=== PATIENT | female | born 1980 | race African-American/Black ===

== ENCOUNTER 2016-11-29 22:07 | Emergency (ER) | payer OTHER ==
[2016-11-29 22:24] LABS: URINE SOURCE CLEAN CATCH
[2016-11-29 22:28] LABS: BASOPHIL% 0.5 % (0-2.5); DIFF IND NO; EOSINOPHIL# 0.1 X10e3 (0-0.7); EOSINOPHIL% 1.6 % (0.0-7.0); HEMATOCRIT 36.9 % (35.0-45.0); HEMOGLOBIN 11.8 gm/dL (12.0-16.0); LYMPHOCYTE# 2.5 X10e3 (1.0-3.5); LYMPHOCYTE% 29.7 % (17.0-45.0); MEAN CELL VOLUME 86.1 FL (83-96); MEAN CORPUSCULAR HEMOGLOBIN 27.6 PG (28-34); MEAN CORPUSCULAR HGB CONC 32.1 g/dL (30-36); MEAN PLATELET VOLUME 9.8 FL (6.5-11.5); MONOCYTE% 11.3 % (3.0-12.0); NEUTROPHIL# 4.8 X10e3 (1.5-7.1); NEUTROPHIL% 56.9 % (40-75); PLATELET COUNT 157 X10e3 (140-420); RED BLOOD COUNT 4.29 X10e (3.90-5.30); RED CELL DISTRIBUTION WIDTH 15.1 % (11.0-15.5); WHITE BLOOD COUNT 8.5 X10e3 (4.0-10.5)
[2016-11-29 22:30] LABS: URINE APPEARANCE CLOUDY; URINE BILIRUBIN NEG (NEG); URINE BLOOD NEG (NEG); URINE COLOR YELLOW; URINE GLUCOSE NEG (NEG); URINE KETONE NEG (NEG); URINE LEUKOCYTE ESTERASE 1+ (NEG); URINE NITRATE NEG (NEG); URINE PROTEIN NEG (NEG); URINE SPECIFIC GRAVITY 1.021 (1.003-1.035); URINE UROBILINOGEN 0.2 MG/DL (NEG)
[2016-11-29 22:32] LABS: CULTURE INDICATED? YES; U HYALINE CASTS AUWI 0-2 /[LPF]; URINE BACTERIA AUWI 1+ (NEGATIVE); URINE SQUAMOUS EPITHELIAL CELL MOD /[HPF]
[2016-11-29 23:00] LABS: ALBUMIN SERUM 3.9 g/dL (3.5-5.0); ALKALINE PHOSPHATASE 36 U/L (32-92); ALT (SGPT) 9 U/L (10-40); AST (SGOT) 12 U/L (10-42); BILIRUBIN, DIRECT 0.1 mg/dL (0.0-0.2); BILIRUBIN,INDIRECT 0.4 mg/dL (0.0-0.9); BILIRUBIN,TOTAL 0.5 mg/dL (0.2-2.0); BLOOD UREA NITROGEN 9 mg/dL (9-23); BUN/CREATININE RATIO 12.85; CALCIUM SERUM 8.7 mg/dL (8.4-10.2); CARBON DIOXIDE 23 mmol/L (22-31); CHLORIDE 104 mmol/L (100-111); CREATININE SERUM 0.7 mg/dL (0.6-1.4); GLOM FILT RATE Estimated ABOVE60 mL/min (>60); GLUCOSE FASTING 90 mg/dL (70-110); LIPASE 19 U/L (22-51); POTASSIUM 3.8 mmol/L (3.5-5.1); PROTEIN TOTAL SERUM 7.2 g/dL (6.0-8.3); SODIUM 135 mmol/L (135-145)
== END 2016-11-29 23:25 | disposition home or self-care (01) ==
LOC: CED 22:07
PROVIDERS: Emergency Medicine
DX: N30.00 Acute cystitis without hematuria (principal); I10 Essential (primary) hypertension; F17.200 Nicotine dependence, unspecified, uncomplicated
CPT/HCPCS: 36415; 80048; 80076; 81003; 83690; 84703; 85025; 87086; 96374; 99283; 99284; J1885

== ENCOUNTER 2017-02-07 16:06 | Emergency (ER) | payer OTHER ==
--- NOTE | ~2017-02-07 | EKG ---
PATIENT: SHERRY STEINER UNIT #: [id number] Ventricular Rate: 66 BPM Atrial Rate: 66 BPM P-R Interval: 196 ms QRS Duration: 84 ms Q-T Interval: 412 ms QTC Calculation(Bezet): 431 ms P [place]: 59 degrees Calculated R [place]: 29 degrees Calculated T [place]: 50 degrees Diagnosis Line: Normal sinus rhythm Diagnosis Line: Normal ECG Diagnosis Line: When compared with ECG of 14-NOV-2016 18:16, Diagnosis Line: No significant change was found Diagnosis Line: Confirmed by STEPHANI OGLDEN MD ([id number]) on Diagnosis Line: 02/08/2017 8:37:33 AM INTERPRETING MD: CHANTEL MYRICK
[2017-02-07 16:59] LABS: BASOPHIL% 0.5 % (0-2.5); EOSINOPHIL# 0.1 X10e3 (0-0.7); EOSINOPHIL% 0.7 % (0.0-7.0); HEMATOCRIT 38.8 % (35.0-45.0); HEMOGLOBIN 12.2 gm/dL (12.0-16.0); LYMPHOCYTE# 2.4 X10e3 (1.0-3.5); LYMPHOCYTE% 31.5 % (17.0-45.0); MEAN CELL VOLUME 88.9 FL (83-96); MEAN CORPUSCULAR HEMOGLOBIN 27.9 PG (28-34); MEAN CORPUSCULAR HGB CONC 31.3 g/dL (30-36); MEAN PLATELET VOLUME 9.5 FL (6.5-11.5); MONOCYTE# 0.7 X10e3 (0-1.0); MONOCYTE% 8.7 % (3.0-12.0); NEUTROPHIL# 4.6 X10e3 (1.5-7.1); NEUTROPHIL% 58.6 % (40-75); PLATELET COUNT 170 X10e3 (140-420); RED BLOOD COUNT 4.37 X10e (3.90-5.30); RED CELL DISTRIBUTION WIDTH 15.2 % (11.0-15.5); WHITE BLOOD COUNT 7.8 X10e3 (4.0-10.5)
[2017-02-07 17:00] LABS: DIFF IND NO
[2017-02-07 17:30] LABS: BUN/CREATININE RATIO 12.5; CREATININE SERUM 0.8 mg/dL (0.6-1.4); POTASSIUM 3.5 mmol/L (3.5-5.1)
[2017-02-07 17:31] LABS: URINE SOURCE CLEAN CATCH
[2017-02-07 17:38] LABS: URINE APPEARANCE CLEAR; URINE BILIRUBIN NEG (NEG); URINE BLOOD NEG (NEG); URINE COLOR YELLOW; URINE GLUCOSE NEG (NEG); URINE KETONE NEG (NEG); URINE LEUKOCYTE ESTERASE TRACE (NEG); URINE NITRATE NEG (NEG); URINE PROTEIN NEG (NEG); URINE SPECIFIC GRAVITY 1.019 (1.003-1.035); URINE UROBILINOGEN 0.2 MG/DL (NEG)
[2017-02-07 17:41] LABS: URINE BACTERIA AUWI NEG (NEGATIVE); URINE SQUAMOUS EPITHELIAL CELL MOD /[HPF]
== END 2017-02-07 17:55 | disposition home or self-care (01) ==
LOC: CED 16:06
PROVIDERS: Emergency Medicine
DX: I95.1 Orthostatic hypotension (principal); F17.200 Nicotine dependence, unspecified, uncomplicated
CPT/HCPCS: 36415; 80048; 81003; 84703; 85025; 93005; 99284

== ENCOUNTER 2017-02-25 20:12 | Emergency (ER) | payer OTHER ==
--- NOTE | ~2017-02-25 | CR142 ---
[facility] A Service of [facility] RADIOLOGY TEXT RESULTS PATIENT: SHERRY STEINER LOCATION: [facility] : 80 UNIT #: [id number] AGE: [address]: Lisa Donaldson APRN SEX: F ORDER DR: [id number] [facility] [address] [place], [place] [address] [id number] E MR#: [id number] Acc #: [id number] NAME: SHERRY STEINER : 1980 SEX: F STUDY DATE/TIME: 02/25/2017 23:14 UNIT: [facility] ROOM: STUDY DESCRIPTION: CR Hand Min 3 Views Rt Attending Physician: Lisa Donaldson A.P.R.N. Ordering Physician: Lisa Donaldson A.P.R.N. Primary Care Physician: No Primary Care Physician MEDICAL IMAGING REPORT This report is preliminary unless electronic signature is present EXAM Right hand series. INDICATIONS Right hand pain and swelling today. No injury. PROCEDURE 3 views right hand. COMPARISON None. FINDINGS No acute fracture or dislocation. IMPRESSION No acute findings. Dictated by... Slick Denton M.D. THIS IS AN ELECTRONICALLY VERIFIED REPORT Slick Denton M.D. at 03/01/2017 7:21 AM CHE/[place] TD: 02/26/2017 08:54 JOB #: [id number] MEDICAL IMAGING REPORT Page 1 of 1 COPY
== END 2017-02-26 | disposition home or self-care (01) ==
LOC: CFTX 20:12 → CED 20:12 → CFTX 22:46
DX: G56.01 Carpal tunnel syndrome, right upper limb (principal); X58.XXXA Exposure to other specified factors, initial encounter; Y92.69 Other specified industrial and construction area as the place of occurrence of the external cause
CPT/HCPCS: 29125; 73130; 99283

== ENCOUNTER 2017-04-01 08:55 | Emergency (ER) | payer OTHER ==
--- NOTE | ~2017-04-01 | CR243 ---
[facility] A Service of [facility] & [facility] RADIOLOGY TEXT RESULTS PATIENT: SHERRY STEINER LOCATION: [facility] : 80 UNIT #: [id number] AGE: [address]: Melita Kothari SEX: F ORDER DR: [id number] [facility] [address] [place], [place] [address] [id number] E MR#: [id number] Acc #: [id number] NAME: SHERRY STEINER : 1980 SEX: F STUDY DATE/TIME: 04/01/2017 10:03 UNIT: [facility] ROOM: STUDY DESCRIPTION: CR Thoracic Spine 3 Views Attending Physician: Melita Kothari P.A.-C. Ordering Physician: Melita Kothari P.A.-C. Primary Care Physician: No Primary Care Physician MEDICAL IMAGING REPORT This report is preliminary unless electronic signature is present EXAM Thoracic spine, 04/01/2017, [facility]. HISTORY 36-year-old female with back pain. FINDINGS AP, lateral, and swimmer's projections of the thoracic spine demonstrate normal thoracic alignment and curvature. Vertebral body heights and disc spaces are preserved. Paravertebral soft tissues are normal. Incidental note of bilateral renal multiple calyceal stones. IMPRESSION 1. Negative thoracic spine. 2. Nephrolithiasis with bilateral multiple renal calyceal stones partially imaged. Dictated by... Louis Boyd M.D. THIS IS AN ELECTRONICALLY VERIFIED REPORT Louis Boyd M.D. at 04/01/2017 12:36 PM JENA/gala TD: 04/01/2017 10:55 JOB #: [id number] MEDICAL IMAGING REPORT Page 1 of 1 COPY
--- NOTE | ~2017-04-01 | EKG ---
PATIENT: SHERRY STEINER UNIT #: [id number] Ventricular Rate: 67 BPM Atrial Rate: 67 BPM P-R Interval: 186 ms QRS Duration: 80 ms Q-T Interval: 398 ms QTC Calculation(Bezet): 420 ms P [place]: 59 degrees Calculated R [place]: 19 degrees Calculated T [place]: 40 degrees Diagnosis Line: Normal sinus rhythm Diagnosis Line: Normal ECG Diagnosis Line: When compared with ECG of 07-FEB-2017 16:46, Diagnosis Line: No significant change was found Diagnosis Line: Confirmed by STEPHANI GOLDEN MD ([id number]) on Diagnosis Line: 04/02/2017 7:59:05 AM INTERPRETING MD: CHANTEL MYRICK
--- NOTE | ~2017-04-01 | CR63 ---
[facility] A Service of [facility] & [facility] RADIOLOGY TEXT RESULTS PATIENT: SHERRY STEINER LOCATION: [facility] : 80 UNIT #: [id number] AGE: [address]: Melita Kothari SEX: F ORDER DR: [id number] [facility] [address] [place], [place] [address] [id number] E MR#: [id number] Acc #: [id number] NAME: SHERRY STEINER : 1980 SEX: F STUDY DATE/TIME: 04/01/2017 9:57 UNIT: [facility] ROOM: STUDY DESCRIPTION: CR Chest 2 View Attending Physician: Melita Kothari P.A.-C. Ordering Physician: Melita Kothari P.A.-C. Primary Care Physician: Primary Care Physician No MEDICAL IMAGING REPORT This report is preliminary unless electronic signature is present EXAM Chest, 04/01/2017 HISTORY 36-year-old woman, short of air, upper back pain. Symptoms noted this a.m. Patient scheduled for thoracic spine as well. COMPARISON Portable chest, 04/07/2016. PA and lateral chest 09/29/2015. FINDINGS PA and lateral chest views show borderline cardiac enlargement. Hilar structures and mediastinal contours are preserved. Bilateral lungs are expanded and clear. Bony thorax appears normal. IMPRESSION Borderline cardiac enlargement. Chest appears negative otherwise with no acute finding. Dictated by... Louis Boyd M.D. THIS IS AN ELECTRONICALLY VERIFIED REPORT Louis Boyd M.D. at 04/01/2017 12:36 PM Jacki TD: 04/01/2017 10:53 JOB #: [id number] MEDICAL IMAGING REPORT Page 1 of 1 COPY
--- NOTE | ~2017-04-01 | CT4 ---
[facility] A Service of [facility] & [facility] RADIOLOGY TEXT RESULTS PATIENT: SHERRY STEINER LOCATION: [facility] : 80 UNIT #: [id number] AGE: [address]: Melita Kothari SEX: F ORDER DR: [id number] [facility] [address] [place], [place] [address] [id number] E MR#: [id number] Acc #: [id number] NAME: SHERRY STEINER : 1980 SEX: F STUDY DATE/TIME: 04/01/2017 11:33 UNIT: [facility] ROOM: STUDY DESCRIPTION: CT Abd and Pelv Wo Cont Attending Physician: Melita Kothari P.A.-C. Ordering Physician: Melita Kothari P.A.-C. Primary Care Physician: No Primary Care Physician MEDICAL IMAGING REPORT This report is preliminary unless electronic signature is present EXAM CT abdomen and pelvis without contrast 04/01/2017 HISTORY Mid back pain for 2 hours; history of hypertension and kidney stones. TECHNIQUE CT abdomen and pelvis performed without administration of oral or intravenous contrast. This CT exam was performed with one or more of the following radiation dose reduction techniques: automatic exposure control, adjustment of mA and/or kV according to patient size, and iterative reconstruction. COMPARISON Comparison 11/30/2015. FINDINGS Dependent atelectasis at the lung bases. Inferior heart and pericardium show some scattered coronary arterial calcifications. The liver shows no acute abnormality. Gallbladder, spleen, pancreas unremarkable. No adrenal abnormalities. The kidneys show multiple bilateral nonobstructing renal calculi, largest on the left measuring approximately 5 mm in diameter and the largest on the right measuring approximately 4 mm in diameter. No hydronephrosis. No hydroureter or ureteral calculus. There are stable phleboliths in the deep pelvis bilaterally. No secondary signs of recent stone passage. No indication of cystic or solid renal mass lesion. CT PELVIS: No inguinal adenopathy. Urinary bladder unremarkable. Uterus and adnexal regions notable for prior bilateral tubal ligation. No fluid collections in the pelvis or abdomen. No adenopathy. Distal esophagus, stomach, small bowel, appendix, and colon unremarkable. Unopacified [facility] A Service of [facility] & [facility] RADIOLOGY TEXT RESULTS PATIENT: SHERRY STEINER [facility]: [id number] : [birth year] UNIT #: [id number] AGE: [address]: Melita Kothari SEX: F ORDER DR: vascular structures show scattered atherosclerotic arterial calcifications. No aneurysm. Patient is status post L5-S1 posterior orthopedic fusion with bilateral fixation screws and rods. Intervertebral disc spacer at this level, as well. The orthopedic hardware appears intact. No acute-appearing bony abnormality. IMPRESSION 1. Multiple bilateral nonobstructing renal calculi. No secondary signs of recent stone passage. No acute-appearing abnormalities in the kidneys, ureters and urinary bladder. 2. Gallbladder, pancreas, appendix normal. 3. Status post tubal ligation. Uterus and adnexal regions show no acute abnormality. 4. Prior L5-S1 orthopedic posterior fusion. No acute-appearing bony abnormality. Dictated by... Oscar Coyne M.D. THIS IS AN ELECTRONICALLY VERIFIED REPORT Oscar Coyne M.D. at 04/02/2017 9:39 PM David TD: 04/01/2017 13:39 JOB #: [id number] MEDICAL IMAGING REPORT Page 1 of 1 COPY
[2017-04-01 09:46] LABS: URINE SOURCE CLEAN CATCH
[2017-04-01 09:51] LABS: BASOPHIL# 0.1 X10e3 (0-0.3); BASOPHIL% 0.8 % (0-2.5); EOSINOPHIL# 0.1 X10e3 (0-0.7); EOSINOPHIL% 1.6 % (0.0-7.0); HEMATOCRIT 37.1 % (35.0-45.0); HEMOGLOBIN 11.9 gm/dL (12.0-16.0); LYMPHOCYTE# 1.8 X10e3 (1.0-3.5); LYMPHOCYTE% 27.9 % (17.0-45.0); MEAN CELL VOLUME 86.4 FL (83-96); MEAN CORPUSCULAR HEMOGLOBIN 27.8 PG (28-34); MEAN CORPUSCULAR HGB CONC 32.1 g/dL (30-36); MEAN PLATELET VOLUME 10.1 FL (6.5-11.5); MONOCYTE# 0.5 X10e3 (0-1.0); MONOCYTE% 7.3 % (3.0-12.0); NEUTROPHIL% 62.4 % (40-75); PLATELET COUNT 185 X10e3 (140-420); RED CELL DISTRIBUTION WIDTH 14.2 % (11.0-15.5); WHITE BLOOD COUNT 6.5 X10e3 (4.0-10.5)
[2017-04-01 09:53] LABS: POC - CKMB <1.0 ng/mL (0.0-7.9); POC - TROPONIN <0.05 ng/mL (<=0.05)
[2017-04-01 09:54] LABS: DIFF IND NO
[2017-04-01 09:55] LABS: URINE APPEARANCE CLEAR; URINE BILIRUBIN NEG (NEG); URINE BLOOD 2+ (NEG); URINE COLOR YELLOW; URINE GLUCOSE NEG (NEG); URINE KETONE NEG (NEG); URINE LEUKOCYTE ESTERASE NEG (NEG); URINE NITRATE NEG (NEG); URINE PROTEIN NEG (NEG); URINE SPECIFIC GRAVITY 1.017 (1.003-1.035); URINE UROBILINOGEN 0.2 MG/DL (NEG)
[2017-04-01 09:59] LABS: URBCS1 AUWI 0-2 /[HPF] (0-2); URINE BACTERIA AUWI NEG (NEGATIVE); URINE SQUAMOUS EPITHELIAL CELL OCC /[HPF]; UWBCS1 AUWI 0-2 (0-5)
[2017-04-01 10:03] LABS: CULTURE INDICATED? NO
[2017-04-01 10:22] LABS: BUN/CREATININE RATIO 11.25; CALCIUM SERUM 8.8 mg/dL (8.4-10.2); CREATININE SERUM 0.8 mg/dL (0.6-1.4); POTASSIUM 3.8 mmol/L (3.5-5.1)
[2017-04-01 10:33] LABS: AMPHETAMINE NEG (NEG); BARBITURATES NEG (NEG); BENZODIAZEPINES NEG (NEG); COCAINE NEG (NEG); MARIJUANA POS (NEG); OPIATES NEG (NEG); TRICYCLIC ANTIDEPRESSANTS NEG (NEG); U METHADONE NEG (NEG)
== END 2017-04-01 12:52 | disposition home or self-care (01) ==
LOC: CED 08:55
PROVIDERS: Physician Assistant
DX: M54.6 Pain in thoracic spine (principal); I10 Essential (primary) hypertension
CPT/HCPCS: 36415; 71020; 72072; 74176; 80048; 80307; 81003; 82553; 84484; 84703; 85025; 85379; 93005; 96374; 96375; 99284; J1885; J2270; J2405

== ENCOUNTER 2017-04-24 11:24 | Emergency (ER) | payer OTHER ==
[~2017-04-24] VITALS: Ht 160 cm; Wt 71.7 kg
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
== END 2017-04-24 13:56 | disposition home or self-care (01) ==
LOC: CED 11:24 → CFTX 11:24
DX: S33.5XXA Sprain of ligaments of lumbar spine, initial encounter (principal); S60.212A Contusion of left wrist, initial encounter; S60.211A Contusion of right wrist, initial encounter; I10 Essential (primary) hypertension; Z98.51 Tubal ligation status; V89.2XXA Person injured in unspecified motor-vehicle accident, traffic, initial encounter; Y92.410 Unspecified street and highway as the place of occurrence of the external cause
CPT/HCPCS: 72100; 73110; 99283

== ENCOUNTER 2017-04-29 09:21 | Emergency (ER) | payer OTHER ==
[~2017-04-29] VITALS: Ht 160 cm; Wt 71.7 kg
--- NOTE | ~2017-04-29 | CT4 ---
[facility] A Service of [facility] RADIOLOGY TEXT RESULTS PATIENT: SHERRY STEINER LOCATION: [facility] : 80 UNIT #: [id number] AGE: [address]: Bacilio Venegas MD SEX: F ORDER DR: [id number] [facility] [address] [place], [place] [address] [id number] E MR#: [id number] Acc #: [id number] NAME: SHERRY STEINER : 1980 SEX: F STUDY DATE/TIME: 04/29/2017 11:37 UNIT: [facility] ROOM: STUDY DESCRIPTION: CT Abd and Pelv Wo Cont Attending Physician: Bacilio Venegas M.D. Ordering Physician: Bacilio Venegas M.D. Primary Care Physician: Primary Care Physician No MEDICAL IMAGING REPORT This report is preliminary unless electronic signature is present EXAM CT abdomen and pelvis without contrast 04/29/2017 1137 hours HISTORY Abdominal pain with nausea, vomiting and diarrhea for 3-4 days. COMPARISON 04/01/2017. TECHNIQUE Helical noncontrasted images were obtained from the lung bases through the pubic symphysis. Sagittal and coronal reconstructions were performed. Total exam DLP 640 mGy-cm. This CT examination was performed with one or more of the following radiation dose reduction techniques: automatic exposure control, adjustment of mA and/or kV according to patient size, and iterative reconstruction. FINDINGS Images through the lung bases are clear. There are no effusions. The distal esophagus is normal. Noncontrasted images of the abdomen demonstrate a normal appearance to the liver, spleen, pancreas. The gallbladder is contracted and contains a few punctate stones. No definite gallbladder wall thickening is seen. There is no bile duct dilatation. The adrenal glands are normal. Both kidneys demonstrate small intrarenal stones measuring up to 4 mm in the upper, mid and lower poles bilaterally. There is no pelvocaliectasis or ureterectasis. There is a small calcification abutting the left posterolateral bladder wall on image 68 which is felt extrinsic to the bladder. This is unchanged from 04/01/2017 and is likely a phlebolith. Additional phleboliths are seen in the left and right hemipelvis. [facility] A Service of [facility] & [facility] RADIOLOGY TEXT RESULTS PATIENT: SHERRY STEINER LOCATION: [facility] : 80 UNIT #: [id number] AGE: [address]: Bacilio Venegas MD SEX: F ORDER DR: The stomach and small bowel appear normal. The appendix is normal. There is no colonic distension or colonic wall thickening. CT pelvis demonstrates an anteverted uterus with bilateral tubal ligation clips. There is no pelvic free fluid. There is postop change of L5-S1 fusion with posterior hardware present and incorporated disc insert seen. No acute bone lesion. IMPRESSION 1. No acute findings in the abdomen or pelvis. The gallbladder is contracted. It does appear there is at least 1 punctate stone but no gallbladder wall thickening or bile duct dilatation. 2. There are multiple small bilateral nonobstructing intrarenal calculi. There is no ureterectasis or ureteral calculus seen. 3. There are bilateral pelvic phleboliths. There is a tiny calcification in the left pelvis abutting the posterior wall of the bladder unchanged from prior study. This is felt extrinsic to the bladder and not within the ureter. 4. Normal appendix. 5. Stable postop fusion changes L5-S1. Dictated by... Randee Galloway M.D. THIS IS AN ELECTRONICALLY VERIFIED REPORT Randee Galloway M.D. at 04/29/2017 2:37 PM FIONA/minnie TD: 04/29/2017 14:05 JOB #: [id number] MEDICAL IMAGING REPORT Page 1 of 1 COPY
[2017-04-29 09:38] LABS: URINE SOURCE CLEAN CATCH
[2017-04-29 09:48] LABS: URINE APPEARANCE HAZY; URINE BILIRUBIN NEG (NEG); URINE BLOOD 4+ (NEG); URINE COLOR YELLOW; URINE GLUCOSE NORM (NORM); URINE KETONE NEG (NEG); URINE LEUKOCYTE ESTERASE 1+ (NEG); URINE NITRATE NEG (NEG); URINE PROTEIN 1+ (NEG); URINE UROBILINOGEN NORM (NORM)
[2017-04-29 09:52] LABS: CULTURE INDICATED? YES; URBCS1 AUWI INNUM /[HPF] (0-2); URINE BACTERIA AUWI NEG (NEGATIVE); URINE SQUAMOUS EPITHELIAL CELL OCC /[HPF]
[2017-04-29 10:45] LABS: BASOPHIL% 0.5 % (0-2.5); DIFF IND NO; EOSINOPHIL# 0.1 X10e3 (0-0.7); HEMATOCRIT 39.1 % (35.0-45.0); HEMOGLOBIN 12.8 gm/dL (12.0-16.0); LYMPHOCYTE# 1.7 X10e3 (1.0-3.5); LYMPHOCYTE% 24.3 % (17.0-45.0); MEAN CELL VOLUME 84.8 FL (83-96); MEAN CORPUSCULAR HEMOGLOBIN 27.8 PG (28-34); MEAN CORPUSCULAR HGB CONC 32.8 g/dL (30-36); MEAN PLATELET VOLUME 9.1 FL (6.5-11.5); MONOCYTE# 0.7 X10e3 (0-1.0); MONOCYTE% 9.8 % (3.0-12.0); NEUTROPHIL# 4.5 X10e3 (1.5-7.1); NEUTROPHIL% 64.4 % (40-75); PLATELET COUNT 193 X10e3 (140-420); RED BLOOD COUNT 4.61 X10e (3.90-5.30); RED CELL DISTRIBUTION WIDTH 14.6 % (11.0-15.5)
[2017-04-29 11:21] LABS: ALBUMIN SERUM 4.4 g/dL (3.5-5.0); BILIRUBIN, DIRECT 0.1 mg/dL (0.0-0.2); BILIRUBIN,INDIRECT 0.7 mg/dL (0.0-0.9); BILIRUBIN,TOTAL 0.8 mg/dL (0.2-2.0); CALCIUM SERUM 9.4 mg/dL (8.4-10.2); CREATININE SERUM 0.9 mg/dL (0.6-1.4); GLOM FILT RATE Estimated 95.4 mL/min (>60); POTASSIUM 3.8 mmol/L (3.5-5.1); PROTEIN TOTAL SERUM 7.6 g/dL (6.0-8.3)
== END 2017-04-29 12:50 | disposition home or self-care (01) ==
LOC: CED 09:21
PROVIDERS: Emergency Medicine
DX: R10.9 Unspecified abdominal pain (principal); R11.2 Nausea with vomiting, unspecified; R19.7 Diarrhea, unspecified
CPT/HCPCS: 36415; 74176; 80048; 80076; 81003; 82150; 83690; 84703; 85025; 87086; 96361; 96374; 96375; 99284; J1885; J2405

== ENCOUNTER 2017-05-08 09:06 | Emergency (ER) | payer OTHER ==
[~2017-05-08] VITALS: Ht 160 cm; Wt 76.2 kg
== END 2017-05-08 10:18 | disposition home or self-care (01) ==
LOC: CED 09:06
DX: N76.0 Acute vaginitis (principal); I10 Essential (primary) hypertension; Z98.51 Tubal ligation status; Z98.890 Other specified postprocedural states
CPT/HCPCS: 99282

== ENCOUNTER → 2017-05-08 | Outpatient (CLI) | payer OTHER ==
--- NOTE | ~2017-05-08 | MR112 ---
[facility] A Service of [facility] & [facility] RADIOLOGY TEXT RESULTS PATIENT: SHERRY STEINER LOCATION: [facility] : 80 UNIT #: [id number] AGE: [address]: KARISSA PETERSON APRN SEX: F ORDER DR: [id number] [facility] [address] [place], [place] [address] [id number] O MR#: [id number] Acc #: [id number] NAME: SHERRY STEINER : 1980 SEX: F STUDY DATE/TIME: 05/08/2017 8:10 UNIT: [facility] ROOM: STUDY DESCRIPTION: MR Lumbar WWo Contrast Attending Physician: Karissa Peterson Aprn Ordering Physician: Karissa Peterson Aprn Primary Care Physician: Karissa Peterson Aprn MRI CENTER REPORT This report is preliminary unless electronic signature is present. EXAM MRI of the lumbar spine with and without contrast dated 05/08/2017 COMPARISON Plain films lumbar spine dated 04/24/2017. MRI lumbar spine without contrast dated 03/16/2013. HISTORY Pain in the lower back with radiation down bilateral hips, legs and numbness for the last 2 months. FINDINGS Multisequence, multiplanar imaging of the lumbar spine was obtained with and without contrast. GFR measured greater than 60. 15 mL of MultiHance was administered intravenously. Vertebral body heights and alignment are preserved. Bipedicular screws and stabilization rods are at L5 and S1. Intervertebral disc prosthesis is also seen at L5-S1 level. There are mild increased T2 signal changes noted in the posterior paraspinal muscles at the level of upper sacrum. Part of it could be related to metallic artifact. Mild edema in the paraspinal muscles, given the surgery cannot be excluded. Patient has had new surgery since 2012. Conus terminates at T12-L1. Signal of conus and cauda equina are within normal limits. L1-2, L2-3: Unremarkable. L3-4: Minimal disc bulge if any. Otherwise unremarkable. L4-5: Mild concentric disc bulge with mild inferior bilateral neural foraminal encroachment. No canal stenosis or nerve impingement. L5-S1: Status post left hemilaminectomy with resection of the large disc extrusion in the right to left central region extending to the bilateral STS. [facility] A Service of [facility] & [facility] RADIOLOGY TEXT RESULTS PATIENT: SHERRY STEINER LOCATION: [facility] : 80 UNIT #: [id number] AGE: [address]: KARISSA PETERSON APRN SEX: F ORDER DR: subarticular regions of L5-S1. There is significant improvement when compared to the prior study. No neural foraminal narrowing or canal stenosis. IMPRESSION Interval new left hemilaminectomy at L5-S1 with removal of the large central disc extrusion. There is no residual disc extrusion, canal stenosis, neural foraminal narrowing or postoperative treatable changes including large fluid collections. Mild edematous changes are suspected along the posterior paraspinal muscles of the lower back at the level of sacrum, on both sides. It is in the region of the susceptibility artifact. Dictated by... Taqueria Charles M.D. THIS IS AN ELECTRONICALLY VERIFIED REPORT Taqueria Charles M.D. at 05/10/2017 4:16 PM CPR/minnie TD: 05/10/2017 13:45 JOB #: [id number] MRI CENTER REPORT Page 1 of 1 COPY
== END | disposition home or self-care (01) ==
LOC: CMRI 07:48
DX: M54.9 Dorsalgia, unspecified (principal); Z98.890 Other specified postprocedural states
CPT/HCPCS: 72158; A9577